=== PATIENT | male | born 1940 | race Caucasian/White ===

== ENCOUNTER → 2021-08-21 | Outpatient (CLI) | payer OTHER ==
[~2021-08-21] MED LIST: AMITRIPTYLINE H10 M1 PO; EXCEDRIN MIGRA1 EAC1 PO; NEURONTIN300 MG PO; PERCOCET 10-321 EAC1 PO; PROTONIX 20 MG20 MG PO
== END ==
LOC: M.PC 11:11
PROVIDERS: ATTEND Anesthesiology Pain Medicine
DX: M79.603 Pain in arm, unspecified (principal); R10.84 Generalized abdominal pain; I49.8 Other specified cardiac arrhythmias; M54.2 Cervicalgia; M25.519 Pain in unspecified shoulder; G89.29 Other chronic pain; G62.9 Polyneuropathy, unspecified; Z79.899 Other long term (current) drug therapy; Z98.890 Other specified postprocedural states

== ENCOUNTER → 2021-09-18 | Outpatient (CLI) | payer OTHER | LOC: M.PC 09:40 | PROVIDERS: ATTEND Anesthesiology Pain Medicine | DX: M54.2 Cervicalgia (principal); M79.603 Pain in arm, unspecified; R10.9 Unspecified abdominal pain; G62.9 Polyneuropathy, unspecified; I49.8 Other specified cardiac arrhythmias; Z98.890 Other specified postprocedural states; Z79.899 Other long term (current) drug therapy ==

== ENCOUNTER → 2021-10-16 | Outpatient (CLI) | payer OTHER | LOC: M.PC 09:38 | PROVIDERS: ATTEND Anesthesiology Pain Medicine | DX: M54.2 Cervicalgia (principal); M25.519 Pain in unspecified shoulder; M79.603 Pain in arm, unspecified; I49.9 Cardiac arrhythmia, unspecified; Z79.82 Long term (current) use of aspirin; Z79.899 Other long term (current) drug therapy ==

== ENCOUNTER → 2021-11-05 | Outpatient (CLI) | payer OTHER | LOC: M.LAB 11:54 | PROVIDERS: ATTEND Internal Medicine Gastroenterology | DX: Z01.812 Encounter for preprocedural laboratory examination (principal); Z20.822 Contact with and (suspected) exposure to COVID-19 ==